=== PATIENT | male | born 1980 | race African-American/Black ===

== ENCOUNTER 2022-08-17 16:30 | Emergency (ER) | payer MEDICAID ==
[~2022-08-17] VITALS: Ht 175.3 cm; Wt 124.7 kg
[2022-08-17 16:30] VITALS: BP_SYST 156
--- NOTE | 2022-08-17 16:30 | NUR ---
BROUGHT BACK TO BED #3 AND TRIAGED. REPORT GIVEN TO AP[facility]
--- NOTE | 2022-08-17 16:35 | NUR ---
PT BIB AWAKE AND ALERT AOX4. PT C/O LACERATION TO LEFT INDEX FINGER WITH A PIZZA CUTTER AT HOME. PT STATES PAIN 6/10. 2 CM LACERATION ON L INDEX FINGER. PT STATED HE IS UP TO DATE WITH HIS TETNUS SHOT. PT HAS HX OF HTN.
--- NOTE | 2022-08-17 16:40 | NUR ---
MD DR DEVINE AT BEDSIDE
[2022-08-17] MEDS ORDERED: LIDOCAINE 1% 10 MG/ML, 20 ML MDV ID ONE (17:00)
--- NOTE | 2022-08-17 17:35 | NUR ---
Patient given written and verbal discharge instructions and verbalizes understanding. ER MD DR DEVINE discussed with patient the results and treatment provided. Patient in stable condition. ID arm band removed. Patient educated on pain management and to follow up with PMD. Pain Scale 2/10. Opportunity for questions provided and answered. Medication side effect fact sheet provided.
[2022-08-17 18:03] VITALS: BP_SYST 125
== END 2022-08-17 17:30 | disposition home or self-care (01) ==
LOC: SED 16:30
DX: S61.210A Laceration without foreign body of right index finger without damage to nail, initial encounter (principal); Z79.899 Other long term (current) drug therapy; W27.4XXA Contact with kitchen utensil, initial encounter; Y93.89 Activity, other specified; Y92.89 Other specified places as the place of occurrence of the external cause; Y99.8 Other external cause status
CPT/HCPCS: 99282; 12001; J2001